=== PATIENT | male | born 1990 | race African-American/Black ===

== ENCOUNTER 2018-04-20 11:32 | Emergency (ER) | payer SELFPAY, OTHER ==
[2018-04-20] MEDS: AZITHROMYCIN 250 MG TAB PO (12:08)
[2018-04-20] MEDS: CEFTRIAXONE 250 MG INJ IM (12:09)
[2018-04-20] MEDS: LIDOCAINE 1% (MDV) 20 ML INJ SC (12:09)
[2018-04-20 12:39] LABS: ADD UMIC YES; UR ASCORBIC ACID NEGATIVE (NEGATIVE); UR BILIRUBIN (Dip) NEGATIVE (NEGATIVE); UR BLOOD (Dip) NEGATIVE (NEGATIVE); UR CLARITY CLEAR (CLEAR); UR COLOR YELLOW (YELLOW); UR GLUCOSE (Dip) NEGATIVE (NEGATIVE); UR KETONES (Dip) NEGATIVE (NEGATIVE); UR LEUKOCYTE ESTERASE (Dip) NEGATIVE Leu/ul (NEGATIVE); UR MUCUS FEW /HPF (NONE SEEN); UR NITRITE (Dip) NEGATIVE (NEGATIVE); UR RBC 1 /HPF (0-5); UR SPECIFIC GRAVITY (Dip) 1.029 (1.003-1.030); UR TOTAL PROTEIN (Dip) 1+ mg/dl (NEGATIVE); UR UROBILINOGEN (Dip) NEGATIVE (NEGATIVE); UR WBC 7 /HPF (0-5)
== END 2018-04-20 14:57 | disposition home or self-care (01) ==
LOC: FTE 11:32
DX: N34.2 Other urethritis (principal)
CPT/HCPCS: 76870; 81001; 87591; 96372; 99285-25